=== PATIENT | female | born 1995 | race African-American/Black ===

== ENCOUNTER 2017-04-12 10:52 | Inpatient (IN) | payer OTHER ==
[~2017-04-12] VITALS: Ht 160 cm; Wt 46.2 kg
[2017-04-12] MEDS ORDERED: LAMI25TA PO (11:07)
[2017-04-12] MEDS ORDERED: DEPO150I IM (11:07)
[2017-04-12] MEDS ORDERED: TRAZ50TA11 PO (11:07)
[2017-04-12] MEDS ORDERED: NS 1,000 ML IV ONE (11:15)
[2017-04-12 11:28] LABS: BASO % 0.9 % (0.0-1.0); EOS # 0.3 K/mm3 (0.0-0.50); EOS % 5.4 % (0.0-3.0); LARGE UNSTAINED CELL # 0.2 K/mm3 (0.0-0.4); LARGE UNSTAINED CELL % 2.8 % (0.0-4.0); LYMPH % 29.5 % (24.0-44.0); MEAN CORPUSCULAR HGB CONC 33.4 g/dl (32.0-36.5); MEAN CORPUSCULAR VOLUME 86.9 fl (80.0-96.0); MONO # 0.3 K/mm3 (0.0-0.8); MONO % 4.4 % (0.0-5.0); NEUTROPHILS # 3.6 K/mm3 (1.8-7.7); PLATELET COUNT, AUTOMATED 213 k/mm3 (150-450); RED CELL DISTRIBUTION WIDTH 13.9 % (11.5-14.5); WHITE BLOOD COUNT 6.3 K/mm3 (4.0-10.0)
[2017-04-12 11:53] LABS: ALBUMIN 3.7 GM/DL (3.2-5.2); ALKALINE PHOSPHATASE 40 U/L (45-117); ALT/SGPT 20 U/L (12-78); ANION GAP 6 MEQ/L (8-16); AST/SGOT 5 U/L (15-37); BILIRUBIN,DIRECT 0.1 MG/DL (0.0-0.2); BILIRUBIN,TOTAL 0.4 MG/DL (0.2-1.0); BLOOD UREA NITROGEN 11 MG/DL (7-18); CALCIUM LEVEL 9.1 MG/DL (8.5-10.1); CARBON DIOXIDE LEVEL 26 MEQ/L (21-32); CHLORIDE LEVEL 108 MEQ/L (98-107); GLUCOSE, FASTING 83 MG/DL (70-105); POTASSIUM SERUM 3.9 MEQ/L (3.5-5.1); SODIUM LEVEL 140 MEQ/L (136-145); TOTAL PROTEIN 7.4 GM/DL (6.4-8.2)
[2017-04-12 12:36] LABS: METHADONE URINE NEGATIVE (NEGATIVE)
[2017-04-12 13:12] LABS: CONTROL LINE HCG INT CTR LINE PRESENT
[2017-04-12] MEDS ORDERED: traZODone 50 MG TAB PO PRN (19:15)
[2017-04-12] MEDS ORDERED: LORazepam 1 MG TAB PO PRN (19:15)
[2017-04-12] MEDS ORDERED: ACETAMINOPHEN TAB 650MG DOSE (2X325MG) PO PRN (19:15)
[2017-04-12] MEDS ORDERED: HALOPERIDOL 5 MG TAB PO PRN (19:15)
[2017-04-12] MEDS ORDERED: MAALOX 30 ML SUSP *UDC PO PRN (19:15)
[2017-04-12] MEDS ORDERED: MOM 30ML SUSPENSION UDC PO PRN (19:15)
[2017-04-12 20:06] VITALS: BP 132/81
[2017-04-13 06:50] VITALS: BP 118/59
--- NOTE | 2017-04-13 08:36 | HPEPDOC ---
Medical History and Physical Date of Admission Apr 12, 2017 at 19:02 History and Physical PCP: Qing ferrell ATTENDING: Dr. Mayo Finch HPI: 22yoF admitted to [facility] for major depression, being medically examined today. Patient had called 911 after ingesting an unknown amount of Lamictal 25 mg and trazodone 50 mg. Patient states she takes Lamictal for her mood. Poison control was consulted, the patient was medically stabilized in the emergency department. No acute medical complaints today. Denies any fevers, chills, weakness, fatigue, ARRIOLA, CP, SOB, cough, palpitations, abdominal pain, N/V/D or changes in bowel or bladder habits. PMHx: Anxiety depression PTSD insomnia Self-mutilation. Depo Provera. 04/13. PSHX: denies SOCHX: Resides in: [place] Marital Status: Kids: none Employment: unemployed Tobacco use: denies ETOH: 1-2 per month Illicit Drugs: Marijuana 4 times per month IV Drug Use: Denies Tattoos done unprofessionally: Denies FAMHX: Mother: Alive, anxiety, depression, PTSD Father: Estranged Siblings: Alive, well Children: None Unexpected deaths due to medical reasons: None. ROS: As noted in HPI, otherwise 11pt ROS of systems reviewed and remarkable only for LMP approximately 6 months ago, currently on Depo-Provera. PE: GEN: 22 yo F, appears stated age. Well-nourished, well developed. No acute distress. Alert and oriented x 3. Pleasant, interactive. HEENT: Normocephalic, atraumatic. Pupils are equal, round, and reactive to light. Extraocular movements are intact. No nystagmus appreciated. Sclera are nonicteric. Conjunctiva without injection. Nose midline. Nasal turbinates without bogginess. EACs both patent BL. TMs both visualized and alejandro with good cone of light, no bulging or erythema. No facial asymmetry. Moist mucous membranes. Dentition fair. Pharynx pink and moist, no cobblestoning. Neck supple , trachea midline. No lymphadenopathy or thyromegaly appreciated. CHEST: Regular rate and rhythm, +S1, +S2 LUNGS: Clear to auscultation bilaterally. No wheezes, rales, or rhonchi. Breathing appears symmetric and easy. Patient is speaking in full sentences. No accessory muscle use. ABD: Round, soft, non-tender, non-distended. +Bowel sounds throughout. No rebound or guarding. No costovertebral angle tenderness. EXT: Pulses 2+ bilaterally dorsalis pedis and radial. No lower extremity edema appreciated. SKIN: Narcissa, dry, warm. Capillary refill <2sec. No rashes. NEURO: Alert and oriented x 3. Cranial nerves III-XII are intact. No focal deficits appreciated. EKG: Pending. A&P: 22yoF admitted to [facility] for major depression 1. Psych. Plan per Psychiatry. Obtain baseline EKG to assure the safety of psychiatric medications as they can prolong the QT interval. 2. Abnormal TSH. Recheck TFTs in a.m. 3. Follow up with PCP on discharge. 4. Substance use. Per psychiatry. 5. Staff member Rafia ARROYO present throughout exam. Vital Signs Vital Signs Date Time Temp Pulse Resp B/P (MAP) Pulse Ox O2 Delivery O2 Flow Rate FiO2 04/13/17 06:50 98.4 98 16 118/59 (78) 04/12/17 20:06 98 Room Air Laboratory Data Labs 24H Laboratory Tests 2 04/12/17 11:09: White Blood Count 6.3, Red Blood Count 4.54, Hemoglobin 13.2, Hematocrit 39.5, Mean Corpuscular Volume 86.9, Mean Corpuscular Hemoglobin 29.0, Mean Corpuscular Hemoglobin Concent 33.4, Red Cell Distribution Width 13.9, Platelet Count 213, Neutrophils (%) (Auto) 57.0, Lymphocytes (%) (Auto) 29.5, Monocytes ( %) (Auto) 4.4, Eosinophils (%) (Auto) 5.4H, Basophils (%) (Auto) 0.9, Neutrophils # (Auto) 3.6, Lymphocytes # (Auto) 2.0, Monocytes # (Auto) 0.3, Eosinophils # (Auto) 0.3, Basophils # (Auto) 0.0, Large Unclassified Cells % 2.8 , Large Unclassified Cells # 0.2, Anion Gap 6L, Calcium Level 9.1, Aspartate Amino Transf (AST/SGOT) 5L, Alanine Aminotransferase (ALT/SGPT) 20, Alkaline Phosphatase 40L, Total Bilirubin 0.4, Direct Bilirubin 0.1, Total Creatine Kinase 113, Total Protein 7.4, Albumin 3.7, Albumin/Globulin Ratio 1.00, Thyroid Stimulating Hormone (TSH) 0.366L, Human Chorionic Gonadotropin, Qual NEGATIVE, Salicylates Level < 1.7L, Acetaminophen Level < 2.0L, Ethyl Alcohol Level < 0.003 04/12/17 11:54: Urine Amphetamines Screen NEGATIVE, Urine Benzodiazepines Screen NEGATIVE, Urine Opiates Screen NEGATIVE, Urine Methadone Screen NEGATIVE, Urine Barbiturates Screen NEGATIVE, Urine Phencyclidine Screen NEGATIVE, Urine Cocaine Metabolite Screen NEGATIVE, Urine Cannabinoids Screen POSITIVEH CBC/BMP Laboratory Tests 04/12/17 11:09 Red Blood Count 4.54, Mean Corpuscular Volume 86.9, Mean Corpuscular Hemoglobin 29.0, Mean Corpuscular Hemoglobin Concent 33.4, Red Cell Distribution Width 13.9 , Neutrophils (%) (Auto) 57.0, Lymphocytes (%) (Auto) 29.5, Monocytes (%) (Auto ) 4.4, Eosinophils (%) (Auto) 5.4 H, Basophils (%) (Auto) 0.9, Neutrophils # ( Auto) 3.6, Lymphocytes # (Auto) 2.0, Monocytes # (Auto) 0.3, Eosinophils # (Auto ) 0.3, Basophils # (Auto) 0.0 Home Medications Scheduled Lamotrigine (Lamictal) 25 Mg Tab, 50 MG PO QAM Medroxyprogesterone Acetate (Depo-Provera Contraceptiv) 150 Mg/Ml Inj, 150 MG IM Q3M PT LAST HAD END OF FEBRUARY OR BEGINNING OF MARCH Trazodone HCl (Trazodone HCl) 50 Mg Tab, 50 MG PO QHS Allergies Coded Allergies: No Known Allergies (Unverified , 04/12/17) Roya Mckeon Apr 13, 2017 08:36
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
[2017-04-13] MEDS ORDERED: hydrOXYzine 25 MG TAB PO PRN (11:30)
[2017-04-13] MEDS: DESVENLAFAXINE ER 50 MG TABLET (PRISTIQ) PO SCH (12:22)
[2017-04-13 18:00] VITALS: BP 116/76
--- NOTE | 2017-04-13 20:12 | ECGEPIP ---
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
[2017-04-14 06:26] VITALS: BP 106/58
[2017-04-14 07:41] LABS: THYROXINE (T4) 12.3 UG/DL (6.0-11.6)
--- NOTE | 2017-04-14 08:18 | ECGEPIP ---
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
[2017-04-14] MEDS: DESVENLAFAXINE ER 50 MG TABLET (PRISTIQ) PO SCH (09:10)
[2017-04-14] MEDS ORDERED: traZODone 50 MG TAB PO PRN (16:00)
--- NOTE | 2017-04-14 16:10 | MHIPNPDOC ---
[facility] Progress Note Progress Note DATE OF SERVICE: 04/14/17 HISTORY: day 3 of admission for overdose with intent to commit suicide. VITAL SIGNS: See below. 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 MENTAL STATUS EXAMINATION: Patient is a 22-year old female, who is petite, well groomed, wearing street clothing, good eye contact. Speech: Is spontaneous Language skills are good. Thought processes including: goal directed. Thought content: appropriate. Abstract reasoning, and computation: good. Description of associations: good. Description of abnormal or psychotic thoughts: pt denies psychotic symptoms, none observed, no obsessions or delusions voiced, pt denies current suicidal ideation, denies plan or intent. Judgment: fair. Insight: good. Orientation: good in all spheres Recent and remote memory: grossly intact Attention span and concentration: good. Fund of knowledge: full Mood: depressed at times but mostly euthymic Affect: constricted at times, other times with range. DIAGNOSES: Adjustment disorder with depressed mood. self-mutilation r/o GERALD Cannabis abuse Codependent personality ASSESSMENT: met with pt today. She reports poor sleep with current dose of trazodone, will increase to 100 mg and monitor. Pt is attending therapeutic programming. She is adjusting well to her new environment. She interacts appropriately with peers and staff. Pt c/o nausea. Pt not eating well. Finds food unappetising. Enc to eat small meals frequently throughout the day. Enc to order 2 entrees so she has a choice of something else if her 1st choice does not appeal to her. Enc her to keep up good H2O intake and avoid citrus. Try to eat something at every meals. She did not have any lunch today and very little at breakfast. If nausea persists inform nursing staff and they can contact medical personnel. Pt is prepared for family meeting on Monday. We will discuss options for Olga while her is away on her job. We will problem solve her situation and help her formulate a plan so she can cope with her partner's absence and not be depressed about it. Pt says too that her father in [place] will come over and see her and that could make a big difference to her when her is gone. It is good she is taking the initiative to resolve her concerns. MANAGEMENT PLAN: no change in observation status, monitor po intake and encourage regular po intake. Enc group activities. She handles ADLs on her own very well. She was informed she ask her to bring in food items but check with nursing staff first. She is interested in leaving the hospital after the family meeting on Monday and that is a very strong possibility. Her new SNRI will take time to become fully effective and can be monitored as an outpatient for effectiveness. Higher dose of trazodone ordered. She was informed to discuss insomnia if not resolved with nursing staff so they can consult with on- call. will check with medicine about recommendation regarding thyroid levels. TIME SPENT: 15 minutes. Vital Signs Vital Signs Date Time Temp Pulse Resp B/P (MAP) Pulse Ox O2 Delivery O2 Flow Rate FiO2 04/14/17 06:26 99.0 95 18 106/58 (74) 04/12/17 20:06 98 Room Air Laboratory Data 24H Labs Laboratory Tests 2 04/14/17 06:52: Thyroid Stimulating Hormone (TSH) 0.282L, Free Thyroxine Index 4.6, Thyroxine ( T4) 12.3H, Triiodothyronine (T3) Uptake 37 Current Medications Current Medications Acetaminophen (Tylenol Tab) 650 mg Q6HP PRN PO HEADACHE or DISCOMFORT; Start at 19:15; Stop 05/12/17 at 19:14 Al Hydrox/Mg Hydrox/Simethicone (Mylanta) 30 ml Q4HP PRN PO HEARTBURN/ INDIGESTION; Start 04/12/17 at 19:15; Stop 05/12/17 at 19:14 Desvenlafaxine Succinate (Pristiq) 50 mg QAM PO Last administered on 04/14/17t 09:10; Start 04/13/17 at 09:00; Stop 05/13/17 at 08:59 Haloperidol (Haldol) 5 mg Q4HP PRN PO ANXIETY/AGITATION; Start 04/12/17 at 19: 15; Stop 05/12/17 at 19:14 Home Med (Med Rec Complete!) ASDIRECTED XX ; Start 04/12/17 at 17:45; Stop at 17:46; Status DC Hydroxyzine HCl (Atarax) 25 mg Q6HP PRN PO ANXIETY; Start 04/13/17 at 11:30; Stop 05/13/17 at 11:29 Lorazepam (Ativan) 1 mg Q4HP PRN PO ANXIETY/AGITATION; Start 04/12/17 at 19:15 ; Stop 04/19/17 at 19:14 Magnesium Hydroxide (Milk Of Magnesia) 30 ml DAILYPRN PRN PO CONSTIPATION; Start 04/12/17 at 19:15; Stop 05/12/17 at 19:14 Trazodone HCl (Desyrel) 50 mg QHSP PRN PO INSOMNIA Last administered on t 20:52; Start 04/12/17 at 19:15; Stop 04/14/17 at 15:57; Status DC Trazodone HCl (Desyrel) 100 mg QHSP PRN PO INSOMNIA; Start 04/14/17 at 16:00; Stop 05/14/17 at 15:59; Status UNV Allergies Coded Allergies: No Known Allergies (Unverified , 04/12/17) aLlitha Rutledge Apr 14, 2017 16:10
[2017-04-14 18:00] VITALS: BP 119/66
[2017-04-14] MEDS: traZODone 100 MG TAB PO PRN (20:33)
[2017-04-15 06:41] VITALS: BP 114/59
[2017-04-15] MEDS: DESVENLAFAXINE ER 50 MG TABLET (PRISTIQ) PO SCH (09:19)
[2017-04-15 18:00] VITALS: BP 125/67
[2017-04-15] MEDS: traZODone 100 MG TAB PO PRN (21:18)
[2017-04-16 06:54] VITALS: BP 135/59
[2017-04-16] MEDS: DESVENLAFAXINE ER 50 MG TABLET (PRISTIQ) PO SCH (08:29)
[2017-04-16 18:00] VITALS: BP 139/72
[2017-04-16] MEDS: traZODone 100 MG TAB PO PRN (21:13)
--- NOTE | 2017-04-17 06:26 | MHIPN ---
DATE: 04/15/2017 CHIEF COMPLAINT: Feels stressed. SUBJECTIVE: Seen for followup, in the presence of staff. Says feels stressed, but overall less anxious, somewhat less depressed as well. Says had difficulties with sleep, she suspects it may be because she was anxious prior to going to bed. She also had a nightmare, says it may have been related to the past. Grief for her cousin, whom she was very close to. Plans to visit the family next weekend. Appetite is okay, she feels it is back to normal and that she does not eat much as is. MENTAL STATUS EXAMINATION: Neat, cooperative. No agitation. No psychomotor retardation. There is good eye contact. Speech is spontaneous. Affect is restricted but reactive. She denies any active suicidal thoughts or intents. No homicidal ideas or intents currently. No evidence of any psychosis. Cognition is grossly intact. Judgment and insight are fair. ASSESSMENT: Adjustment disorder with depressed mood. Also consider depressive disorder, though she may not meet full criteria for major depressive episode. PLAN: She is to continue with Pexeva at 50 mg daily, hydroxyzine 25 mg every six hours as needed for anxiety, trazodone 100 mg at night as needed for insomnia. She had a hard time with sleep last night, we will continue with the trazodone for now, and should difficulties continue at this dose, may need to replace it with another hypnotic. She will be involved in individual therapy, and we will encourage her to participate in activities in the unit. VITAL SIGNS: Blood pressure 114/59, pulse 84, temperature 99.9.
[2017-04-17 06:32] VITALS: BP 117/58
--- NOTE | 2017-04-17 08:02 | ECGEPIP ---
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
[2017-04-17] MEDS: DESVENLAFAXINE ER 50 MG TABLET (PRISTIQ) PO SCH (08:16)
[2017-04-17] MEDS ORDERED: PRIS50TA PO (08:40)
[2017-04-17] MEDS ORDERED: TRAZ10TA PO (08:40)
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
--- NOTE | 2017-04-17 13:51 | REP ---
THYROID ULTRASOUND: Real-time sonographic evaluation of the thyroid is performed. Both lobes are normal in size and echotexture, right lobe measuring 4.5 x 1.3 x 1.0 cm and the left lobe 4.3 x 1.2 x 1.0 cm. There is no evidence of cystic or solid nodule bilaterally. IMPRESSION: Normal thyroid ultrasound. Signed by Dionte Olivia MD 04/17/2017 04:08 P
--- NOTE | 2017-04-17 21:50 | MHIPN ---
DATE: 04/16/2017 CHIEF COMPLAINT: Says feels okay. SUBJECTIVE: Seen for followup in the presence of staff. She says she feels better and that her moods are improved. She says she was unable to sleep much, feels it is because she is still in the hospital, and anticipates that improving once she is out. MENTAL STATUS EXAM: She is neat. She is cooperative. No agitation. No psychomotor retardation. She is coherent. Affect is reactive. She denies any thoughts of harming herself or anyone else. Currently, there is no evidence of any psychosis. Cognition grossly intact. Judgment good. Insight is good overall. ASSESSMENT: Adjustment disorder with depressed mood, rule out major depressive disorder. PLAN: Continue current care and observation. Encourage participation in activities on the unit. ZOHRA
--- NOTE | 2017-04-18 08:49 | IPN ---
DATE OF SERVICE: 04/16/2017 I was asked by nursing to see her. She has been having episodes where she feels tachycardic, rapid heart rate anywhere from 80s-90s. Electrocardiogram (EKG) was done, which shows sinus rhythm, rate of 93. She had no other complaints. No lightheadedness. No chest pain. I reviewed her laboratory studies. Complete blood count (CBC) was normal. Thyroid-stimulating hormone (TSH) was low at 0.282. Free T4 4.6. T4 was elevated at 12.3. Will get a thyroid ultrasound in the morning. OBJECTIVE: The patient is very thin. Height 63 inches, weight 46.2 kg, body mass index (BMI) 18. The patient is alert and oriented times three. Pupils equal and reactive to light. Extraocular muscles intact. Cornea and sclerae clear. Conjunctivae normal. No facial asymmetry. Pharynx, tongue, gums pink and moist. Tongue is midline. NECK: Is supple. Thyroid feels slightly enlarged. Carotids 2+ without bruit. CHEST: Clear to auscultation without wheeze or retraction. HEART: Is regular. ABDOMEN: Benign. Bowel sounds positive. GENITOURINARY ()/RECTAL: Not done. EXTREMITIES: No cyanosis, clubbing, or edema. SKIN: Is warm and dry. IMPRESSION: 1. Complaints of tachycardia. 2. Decreased weight. 3. Abnormal thyroid functions. PLAN: Will get thyroid ultrasound. The patient will need an endocrinology consult.
== END 2017-04-17 11:50 | disposition home or self-care (01) | DRG 881 ==
LOC: M ED 10:52 → M ED INP 19:02 → M PSY 20:01
PROVIDERS: ADMIT Psychiatry & Neurology Psychiatry; ATTEND Psychiatry & Neurology Psychiatry
DX: F43.21 Adjustment disorder with depressed mood (principal); Z91.5 Personal history of self-harm; Z79.899 Other long term (current) drug therapy; R94.6 Abnormal results of thyroid function studies; F19.90 Other psychoactive substance use, unspecified, uncomplicated; F32.9 Major depressive disorder, single episode, unspecified

== ENCOUNTER 2017-05-13 10:40 | Emergency (ER) | payer OTHER ==
[~2017-05-13] VITALS: Ht 160 cm; Wt 46.4 kg
[~2017-05-13 10:40] MED LIST: DEPO150I IM; LAMI25TA PO; PRIS50TA PO; TRAZ10TA PO; TRAZ50TA11 PO
[2017-05-13] MEDS ORDERED: KETOROLAC 30 MG/ML VIAL (J1885) IV ONE (11:00)
[2017-05-13] MEDS ORDERED: ONDANSETRON 4MG/2ML VIAL (J2405) IV ONE (11:00)
[2017-05-13] MEDS ORDERED: NS 1,000 ML IV ONE (11:00)
[2017-05-13 11:31] LABS: RENAL EPITHELIAL CELLS 3 /HPF
[2017-05-13 11:34] LABS: ADD MANUAL DIFFER YES; MEAN CORPUSCULAR HEMOGLOBIN 30.3 pg (27.0-33.0); MEAN CORPUSCULAR HGB CONC 35.3 g/dl (32.0-36.5); MEAN CORPUSCULAR VOLUME 85.7 fl (80.0-96.0); PLATELET COUNT, AUTOMATED 185 k/mm3 (150-450); RED CELL DISTRIBUTION WIDTH 13.3 % (11.5-14.5); WHITE BLOOD COUNT 12.9 K/mm3 (4.0-10.0)
[2017-05-13 11:52] LABS: BANDS 2 % (< 11); BASOPHILS 1 % (0-4); EOSINOPHILS 2 % (0-5)
[2017-05-13 12:07] LABS: ALBUMIN 3.2 GM/DL (3.2-5.2); ALBUMIN/GLOBULIN RATIO 1.03 (1.00-1.93); ALKALINE PHOSPHATASE 46 U/L (45-117); ALT/SGPT 14 U/L (12-78); ANION GAP 10 MEQ/L (8-16); AST/SGOT 6 U/L (15-37); BILIRUBIN,DIRECT 0.2 MG/DL (0.0-0.2); BILIRUBIN,TOTAL 0.4 MG/DL (0.2-1.0); BLOOD UREA NITROGEN 6 MG/DL (7-18); CALCIUM LEVEL 8.2 MG/DL (8.5-10.1); CARBON DIOXIDE LEVEL 24 MEQ/L (21-32); CHLORIDE LEVEL 109 MEQ/L (98-107); CREATININE FOR GFR 0.67 MG/DL (0.55-1.02); GLUCOSE, FASTING 74 MG/DL (70-105); POTASSIUM SERUM 3.7 MEQ/L (3.5-5.1); SODIUM LEVEL 143 MEQ/L (136-145); TOTAL PROTEIN 6.3 GM/DL (6.4-8.2)
[2017-05-13] MEDS ORDERED: LEVA1TAB PO ×2 (12:38→12:43)
[2017-05-13 12:40] VITALS: BP 116/58
== END 2017-05-13 12:46 | disposition home or self-care (01) ==
LOC: M ED 10:40
DX: N30.90 Cystitis, unspecified without hematuria (principal); F43.10 Post-traumatic stress disorder, unspecified; F99 Mental disorder, not otherwise specified; Z79.899 Other long term (current) drug therapy
CPT/HCPCS: 36415; 80048; 80076; 81001; 81025; 83690; 85025; 96361; 96374; 96375; 99284; J1885; J2405

== ENCOUNTER 2017-07-22 13:08 | Emergency (ER) | payer OTHER ==
[~2017-07-22] VITALS: Ht 160 cm; Wt 43.6 kg
[~2017-07-22 13:08] MED LIST changes: +LEVA1TAB PO
[2017-07-22 13:54] LABS: CONTROL LINE UCG INT CTR LINE PRESENT
--- NOTE | 2017-07-22 18:20 | REPUSA ---
Clinical history: vaginal bleeding. Findings: Real-time transabdominal ultrasound images of the pelvis were obtained. An anteverted uteru s is noted, measuring 5.5 x 3.3 x 4.0 cm. The uterus demonstrates normal echotexture and echogenicity . The endometrial stripe measures 5 mm and is within normal limits. The right ovary measures 2.4 x 2. 1 x 1.8 cm. The left ovary measures 2.6 x 1.4 x 1.4 cm. No adnexal masses are seen. Color Doppler galina w is seen within both ovaries. There is no evidence of free fluid. Impression: Unremarkable ultrasound examination of the pelvis.
[2017-07-22 18:49] VITALS: BP 113/68
== END 2017-07-22 18:50 | disposition home or self-care (01) ==
LOC: M ED 13:08
DX: N93.9 Abnormal uterine and vaginal bleeding, unspecified (principal); F41.9 Anxiety disorder, unspecified; F32.9 Major depressive disorder, single episode, unspecified; Z79.3 Long term (current) use of hormonal contraceptives

== ENCOUNTER 2017-07-28 12:33 | Emergency (ER) | payer OTHER ==
[~2017-07-28] VITALS: Ht 160 cm; Wt 43.6 kg
[2017-07-28] MEDS ORDERED: ESCI10TA2 PO (12:48)
[2017-07-28] MEDS ORDERED: NORCOTAB PO (14:15)
[2017-07-28] MEDS ORDERED: PERCOCET 5MG/325MG TAB PO ONE (14:15)
[2017-07-28] MEDS ORDERED: BACT800T5 PO (14:15)
[2017-07-28 14:41] VITALS: BP 120/71
== END 2017-07-28 14:46 | disposition home or self-care (01) ==
LOC: M ED 12:33
DX: N76.4 Abscess of vulva (principal); F33.9 Major depressive disorder, recurrent, unspecified; F41.9 Anxiety disorder, unspecified; F43.10 Post-traumatic stress disorder, unspecified; Z79.3 Long term (current) use of hormonal contraceptives

== ENCOUNTER 2018-01-01 07:30 | Emergency (ER) | payer OTHER ==
[2018-01-01] MEDS: ONDANSETRON 4MG/2ML VIAL (J2405) IV (08:31)
[2018-01-01 08:32] LABS: BASO % 0.4 % (0.0-1.0); EOS # 0.2 10^3/uL (0.0-0.50); HEMATOCRIT 41.1 % (36.0-47.0); HEMOGLOBIN 13.4 g/dl (12.0-15.5); IMMATURE GRANULOCYTE % 0.4 % (0-3.0); LYMPH # 2.9 10^3/uL (1.5-6.5); MEAN CORPUSCULAR HEMOGLOBIN 28.9 pg (27.0-33.0); MEAN CORPUSCULAR HGB CONC 32.6 g/dl (32.0-36.5); MEAN CORPUSCULAR VOLUME 88.6 fl (80.0-96.0); MONO # 0.7 10^3/uL (0.0-0.8); MONO % 7.4 % (0.0-5.0); NEUTROPHILS # 6.1 10^3/uL (1.8-7.7); NEUTROPHILS % 60.8 % (36.0-66.0); PLATELET COUNT, AUTOMATED 242 10^3/uL (150-450); RED BLOOD COUNT 4.64 10^6/uL (4.00-5.40); RED CELL DISTRIBUTION WIDTH 14.4 % (11.5-14.5)
[2018-01-01] MEDS: NS 1,000 ML IV (08:32)
[2018-01-01 08:33] LABS: CONTROL LINE UCG INT CTR LINE PRESENT; URINE PREG TEST NEGATIVE (NEGATIVE)
[2018-01-01 08:52] LABS: KETONE, URINE AUTO RFX NEGATIVE (NEGATIVE); LEUKOCYTE ESTERASE UR AUTO RFX NEGATIVE (NEGATIVE); MUCUS, URINE RFX SMALL (NEGATIVE); NITRITE, URINE AUTO RFX NEGATIVE (NEGATIVE); RBC, URINE AUTO RFX 2 /HPF (0-3); SQUAM EPITHELIAL CELL UR AURFX 4 /HPF (0-6); WBC, URINE AUTO RFX 3 /HPF (0-3)
[2018-01-01 08:57] LABS: ALBUMIN 4.3 GM/DL (3.2-5.2); ALBUMIN/GLOBULIN RATIO 0.98 (1.00-1.93); ALKALINE PHOSPHATASE 52 U/L (45-117); ALT/SGPT 21 U/L (12-78); AMYLASE 155 U/L (25-115); ANION GAP 5 MEQ/L (8-16); AST/SGOT 11 U/L (7-37); BILIRUBIN,DIRECT < 0.1 MG/DL (0.0-0.2); BILIRUBIN,TOTAL 0.2 MG/DL (0.2-1.0); BLOOD UREA NITROGEN 12 MG/DL (7-18); CALCIUM LEVEL 8.8 MG/DL (8.5-10.1); CARBON DIOXIDE LEVEL 28 MEQ/L (21-32); CHLORIDE LEVEL 109 MEQ/L (98-107); GLUCOSE, FASTING 73 MG/DL (70-100); LIPASE 120 U/L (73-393); POTASSIUM SERUM 3.3 MEQ/L (3.5-5.1); SODIUM LEVEL 142 MEQ/L (136-145); TOTAL PROTEIN 8.7 GM/DL (6.4-8.2)
== END 2018-01-01 10:07 | disposition home or self-care (01) ==
LOC: M ED 07:30
DX: R11.2 Nausea with vomiting, unspecified (principal); F33.9 Major depressive disorder, recurrent, unspecified; F41.9 Anxiety disorder, unspecified; F43.10 Post-traumatic stress disorder, unspecified; F17.200 Nicotine dependence, unspecified, uncomplicated; Z79.3 Long term (current) use of hormonal contraceptives; Z79.899 Other long term (current) drug therapy
CPT/HCPCS: J2405

== ENCOUNTER 2018-03-01 12:38 | Emergency (ER) | payer OTHER ==
[2018-03-01 13:18] LABS: HEMATOCRIT 41.5 % (36.0-47.0); HEMOGLOBIN 13.7 g/dl (12.0-15.5); MEAN CORPUSCULAR HEMOGLOBIN 29.4 pg (27.0-33.0); MEAN CORPUSCULAR VOLUME 89.1 fl (80.0-96.0); PLATELET COUNT, AUTOMATED 215 10^3/uL (150-450); RED BLOOD COUNT 4.66 10^6/uL (4.00-5.40); RED CELL DISTRIBUTION WIDTH 14.3 % (11.5-14.5); WHITE BLOOD COUNT 7.2 10^3/uL (4.0-10.0)
[2018-03-01 13:26] LABS: CONTROL LINE HCG INT CTR LINE PRESENT; HCG, SERUM QUALITATIVE NEGATIVE (NEGATIVE)
[2018-03-01 13:35] LABS: AMPHETAMINES LEVEL URINE NEGATIVE (NEGATIVE); BARBITURATES URINE NEGATIVE (NEGATIVE); BENZODIAZEPINES URINE NEGATIVE (NEGATIVE); CANNABINOIDS URINE POSITIVE (NEGATIVE); COCAINE METABOLITE URINE NEGATIVE (NEGATIVE); METHADONE URINE NEGATIVE (NEGATIVE); OPIATES URINE NEGATIVE (NEGATIVE); PHENCYCLIDINE URINE NEGATIVE (NEGATIVE)
[2018-03-01 13:43] LABS: ALBUMIN 4.3 GM/DL (3.2-5.2); ALBUMIN/GLOBULIN RATIO 1.05 (1.00-1.93); ALKALINE PHOSPHATASE 49 U/L (45-117); ALT/SGPT 35 U/L (12-78); ANION GAP 9 MEQ/L (8-16); AST/SGOT 15 U/L (7-37); BILIRUBIN,DIRECT 0.2 MG/DL (0.0-0.2); BILIRUBIN,TOTAL 0.7 MG/DL (0.2-1.0); BLOOD UREA NITROGEN 9 MG/DL (7-18); CALCIUM LEVEL 9.5 MG/DL (8.5-10.1); CARBON DIOXIDE LEVEL 26 MEQ/L (21-32); CHLORIDE LEVEL 109 MEQ/L (98-107); CREATININE FOR GFR 0.93 MG/DL (0.55-1.30); ETHYL ALCOHOL (ETHANOL) 0.004 % (0.000-0.010); GLOMERULAR FILTRATION RATE > 60.0 (>60); GLUCOSE, FASTING 78 MG/DL (70-100); POTASSIUM SERUM 3.6 MEQ/L (3.5-5.1); SALICYLATE LEVEL 4.4 MG/DL (5.0-30.0); SODIUM LEVEL 144 MEQ/L (136-145); THYROID STIMULATING HORMONE 0.515 uIU/ML (0.358-3.740); TOTAL PROTEIN 8.4 GM/DL (6.4-8.2)
[2018-03-01 13:45] LABS: ACETAMINOPHEN LEVEL < 2.0 UG/ML (10.0-30.0)
[2018-03-01] MEDS: ALPRAZolam 0.25 MG TAB PO (16:15)
== END 2018-03-01 16:20 | disposition home or self-care (01) ==
LOC: M ED 12:38
DX: F43.0 Acute stress reaction (principal); F33.9 Major depressive disorder, recurrent, unspecified; Z79.899 Other long term (current) drug therapy; Z79.3 Long term (current) use of hormonal contraceptives; F17.210 Nicotine dependence, cigarettes, uncomplicated
CPT/HCPCS: G0480

== ENCOUNTER 2018-07-31 11:47 | Emergency (ER) | payer OTHER ==
[2018-07-31 13:20] LABS: BASO % 0.3 % (0.0-1.0); EOS # 0.1 10^3/uL (0.0-0.50); EOS % 1.3 % (0.0-3.0); HEMATOCRIT 42.1 % (36.0-47.0); HEMOGLOBIN 13.7 g/dl (12.0-15.5); IMMATURE GRANULOCYTE % 0.4 % (0-3.0); LYMPH # 2.6 10^3/uL (1.5-6.5); LYMPH % 27.4 % (24.0-44.0); MEAN CORPUSCULAR HEMOGLOBIN 28.7 pg (27.0-33.0); MEAN CORPUSCULAR HGB CONC 32.5 g/dl (32.0-36.5); MEAN CORPUSCULAR VOLUME 88.1 fl (80.0-96.0); MONO # 0.7 10^3/uL (0.0-0.8); MONO % 7.3 % (0.0-5.0); NEUTROPHILS # 5.9 10^3/uL (1.8-7.7); NEUTROPHILS % 63.3 % (36.0-66.0); PLATELET COUNT, AUTOMATED 292 10^3/uL (150-450); RED BLOOD COUNT 4.78 10^6/uL (4.00-5.40); RED CELL DISTRIBUTION WIDTH 13.6 % (11.5-14.5); WHITE BLOOD COUNT 9.3 10^3/uL (4.0-10.0)
[2018-07-31 13:27] LABS: KETONE, URINE AUTO RFX NEGATIVE (NEGATIVE); LEUKOCYTE ESTERASE UR AUTO RFX NEGATIVE (NEGATIVE); MUCUS, URINE RFX SMALL (NEGATIVE); NITRITE, URINE AUTO RFX NEGATIVE (NEGATIVE); RBC, URINE AUTO RFX 0 /HPF (0-3); SPECIFIC GRAVITY UR AUTO RFX 1.017 (1.002-1.035); SQUAM EPITHELIAL CELL UR AURFX 4 /HPF (0-6); WBC, URINE AUTO RFX 1 /HPF (0-3)
[2018-07-31 13:51] LABS: ALBUMIN 3.7 GM/DL (3.2-5.2); ALKALINE PHOSPHATASE 68 U/L (45-117); ALT/SGPT 15 U/L (12-78); ANION GAP 8 MEQ/L (8-16); AST/SGOT 8 U/L (7-37); BILIRUBIN,DIRECT 0.1 MG/DL (0.0-0.2); BILIRUBIN,TOTAL 0.2 MG/DL (0.2-1.0); BLOOD UREA NITROGEN 8 MG/DL (7-18); CALCIUM LEVEL 8.7 MG/DL (8.5-10.1); CARBON DIOXIDE LEVEL 26 MEQ/L (21-32); CHLORIDE LEVEL 108 MEQ/L (98-107); CREATININE FOR GFR 0.77 MG/DL (0.55-1.30); GLOMERULAR FILTRATION RATE > 60.0 (>60); GLUCOSE, FASTING 77 MG/DL (70-100); SODIUM LEVEL 142 MEQ/L (136-145); TOTAL PROTEIN 7.8 GM/DL (6.4-8.2)
[2018-07-31 15:28] LABS: CONTROL LINE UCG INT CTR LINE PRESENT; URINE PREG TEST NEGATIVE (NEGATIVE)
[2018-07-31] MEDS: DICYCLOMINE 10 MG CAP PO (15:28)
[2018-07-31] MEDS ORDERED: ISOVUE-370 76% 100ML VIAL (Q9967) As Ordered (16:47)
== END 2018-07-31 17:45 | disposition home or self-care (01) ==
LOC: M ED 11:47
DX: R10.84 Generalized abdominal pain (principal); R11.0 Nausea; F41.9 Anxiety disorder, unspecified; F32.9 Major depressive disorder, single episode, unspecified; F43.10 Post-traumatic stress disorder, unspecified; Z87.891 Personal history of nicotine dependence; Z79.3 Long term (current) use of hormonal contraceptives; Z79.899 Other long term (current) drug therapy
CPT/HCPCS: Q9967

== ENCOUNTER 2018-11-14 17:38 | Emergency (ER) | payer OTHER ==
[~2018-11-14] VITALS: Ht 160 cm; Wt 54.5 kg
[~2018-11-14 17:38] MED LIST changes: +BACT800T5 PO; +DICY10CA13 PO; +ESCI10TA2 PO; -LEVA1TAB PO; +LEVA250T13 PO; +NORCOTAB PO; +OLAN10TA2; +PARO20TA3; +PROM25TA12 PO; +TRAZ-160 PO; -TRAZ50TA11 PO; +ZOFR4TAB14 PO
[2018-11-14] MEDS ORDERED: PANT40TA3 PO (17:45)
[2018-11-14] MEDS ORDERED: PROM50TA4 PO (17:45)
[2018-11-14] MEDS ORDERED: diazePAM 5 MG TAB PO ONE (18:30)
[2018-11-14] MEDS ORDERED: METOCLOPRAMIDE 10 MG TAB PO ONE (18:30)
[2018-11-14] MEDS ORDERED: REGL10TA6 PO (19:16)
[2018-11-14] MEDS ORDERED: BACT800T5 PO (19:19)
[2018-11-14 19:22] VITALS: BP 133/77
== END 2018-11-14 19:24 | disposition home or self-care (01) ==
LOC: M ED 17:38
DX: N39.0 Urinary tract infection, site not specified (principal); F33.9 Major depressive disorder, recurrent, unspecified; F41.9 Anxiety disorder, unspecified; F43.10 Post-traumatic stress disorder, unspecified; Z79.899 Other long term (current) drug therapy; Z79.3 Long term (current) use of hormonal contraceptives

== ENCOUNTER → 2019-06-20 | Outpatient (CLI) | payer OTHER ==
[~2019-06-20] MED LIST changes: +HYDR-3715 PO; -NORCOTAB PO; +PANT40TA3 PO; +PROM50TA4 PO; +REGL10TA6 PO; -TRAZ-160 PO; +TRAZ-252 PO
--- NOTE | 2019-06-20 11:58 | REP ---
NUCLEAR GASTRIC EMPTYING SCAN: Following the oral administration of 1.1 mCi technetium-99m sulfur colloid in two scrambled eggs and 1 ounce of water, multiple images of the upper abdomen are performed in the anterior and posterior projections. Gastric activity is measured and at the end of 90 minutes, 82% of the ingested activity has emptied from the stomach. T1/2 is calculated to be 53 minutes, which is normal. IMPRESSION: Normal gastric emptying. Electronically Signed by Dionte Olivia MD 06/22/2019 10:22 A
== END ==
LOC: M RAD 08:25
PROVIDERS: ATTEND Internal Medicine Gastroenterology
DX: R11.0 Nausea (principal)
CPT/HCPCS: 78264; A9541

== ENCOUNTER 2019-09-06 11:58 | Emergency (ER) | payer OTHER ==
[~2019-09-06] VITALS: Ht 160 cm; Wt 56.5 kg
[~2019-09-06 11:58] MED LIST changes: -TRAZ10TA PO; +TRAZ1TAB12 PO
[2019-09-06] MEDS ORDERED: SERO200T PO (12:31)
[2019-09-06] MEDS ORDERED: BUSP10TA PO (12:31)
[2019-09-06] MEDS ORDERED: ZOFR4TAB16 PO (12:31)
[2019-09-06] MEDS ORDERED: PROM50TA4 PO (12:31)
[2019-09-06] MEDS ORDERED: HALOPERIDOL 5 MG/ML VIAL (J1630) IV ONE (13:00)
[2019-09-06] MEDS ORDERED: NS 500 ML IV ONE (13:00)
[2019-09-06] MEDS ORDERED: DICYCLOMINE 10 MG CAP PO ONE (13:00)
[2019-09-06 13:14] LABS: BASO % 0.2 % (0.0-1.0); EOS # 0.1 10^3/uL (0.0-0.5); EOS % 0.7 % (0.0-3.0); HEMATOCRIT 44.2 % (36.0-47.0); LYMPH % 24.7 % (24.0-44.0); MEAN CORPUSCULAR HEMOGLOBIN 27.7 pg (27.0-33.0); MEAN CORPUSCULAR HGB CONC 31.7 g/dl (32.0-36.5); MEAN CORPUSCULAR VOLUME 87.4 fl (80.0-96.0); MONO # 0.5 10^3/uL (0.0-0.8); MONO % 5.5 % (0.0-5.0); NEUTROPHILS # 5.6 10^3/uL (1.5-8.5); NEUTROPHILS % 68.7 % (36.0-66.0); PLATELET COUNT, AUTOMATED 263 10^3/uL (150-450); RED BLOOD COUNT 5.06 10^6/uL (4.00-5.40); WHITE BLOOD COUNT 8.2 10^3/uL (4.0-10.0)
[2019-09-06 13:46] LABS: ALBUMIN 4.3 GM/DL (3.2-5.2); ALT/SGPT 19 U/L (12-78); BILIRUBIN,DIRECT 0.1 MG/DL (0.0-0.2); BILIRUBIN,TOTAL 0.4 MG/DL (0.2-1.0); BLOOD UREA NITROGEN 7 MG/DL (7-18); CALCIUM LEVEL 9.5 MG/DL (8.5-10.1); CARBON DIOXIDE LEVEL 24 MEQ/L (21-32); CHLORIDE LEVEL 106 MEQ/L (98-107); CREATININE FOR GFR 0.73 MG/DL (0.55-1.30); GLOMERULAR FILTRATION RATE > 60.0 (>60); GLUCOSE, FASTING 86 MG/DL (70-100); LIPASE 57 U/L (73-393); POTASSIUM SERUM 4.2 MEQ/L (3.5-5.1); SODIUM LEVEL 139 MEQ/L (136-145)
[2019-09-06] MEDS ORDERED: DICY20TA11 PO (15:30)
[2019-09-06 16:06] VITALS: BP 128/69
== END 2019-09-06 16:10 | disposition home or self-care (01) ==
LOC: M ED 11:58
DX: K58.9 Irritable bowel syndrome, unspecified (principal); F43.10 Post-traumatic stress disorder, unspecified; Z79.899 Other long term (current) drug therapy
CPT/HCPCS: 36415; 80048; 80076; 83690; 85025; 96361; 96374; 99284; J1630

== ENCOUNTER 2019-09-28 09:44 | Emergency (ER) | payer OTHER ==
[~2019-09-28] VITALS: Ht 160 cm; Wt 54.3 kg
[~2019-09-28 09:44] MED LIST changes: +BUSP10TA PO; +DICY20TA11 PO; +SERO200T PO; +ZOFR4TAB16 PO
[2019-09-28 10:30] LABS: BASO % 0.5 % (0.0-1.0); EOS # 0.1 10^3/uL (0.0-0.5); EOS % 1.2 % (0.0-3.0); HEMATOCRIT 45.6 % (36.0-47.0); HEMOGLOBIN 14.4 g/dl (12.0-15.5); LYMPH # 1.8 10^3/uL (1.5-5.0); MEAN CORPUSCULAR HEMOGLOBIN 27.8 pg (27.0-33.0); MEAN CORPUSCULAR HGB CONC 31.6 g/dl (32.0-36.5); MONO # 0.4 10^3/uL (0.0-0.8); MONO % 4.2 % (0.0-5.0); NEUTROPHILS # 6.1 10^3/uL (1.5-8.5); NEUTROPHILS % 72.7 % (36.0-66.0); PLATELET COUNT, AUTOMATED 239 10^3/uL (150-450); RED BLOOD COUNT 5.18 10^6/uL (4.00-5.40); WHITE BLOOD COUNT 8.4 10^3/uL (4.0-10.0)
[2019-09-28 11:38] LABS: APPEARANCE, URINE HAZY (CLEAR); BACTERIA, URINE AUTO 1+ (NEGATIVE); BILIRUBIN, URINE AUTO NEGATIVE (NEGATIVE); BLOOD, URINE BLOOD NEGATIVE (NEGATIVE); COLOR, URINE YELLOW (YELLOW); GLUCOSE, URINE (UA) AUTO NEGATIVE (NEGATIVE); KETONE, URINE AUTO NEGATIVE (NEGATIVE); LEUKOCYTE ESTERASE, URINE AUTO 1+ (NEGATIVE); MUCUS, URINE SMALL (NEGATIVE); NITRITE, URINE AUTO NEGATIVE (NEGATIVE); PROTEIN, URINE AUTO NEGATIVE (NEGATIVE); RBC, URINE AUTO 2 /HPF (0-3); SPECIFIC GRAVITY URINE AUTO 1.019 (1.002-1.035); SQUAMOUS EPITHELIAL CELL UR AU 7 /HPF (0-6); UROBILINOGEN, URINE AUTO 0.2 mg/dL (0.0-2.0); WBC, URINE AUTO 10 /HPF (0-3)
--- NOTE | 2019-09-28 11:45 | REP ---
Pelvic ultrasound for pelvic pain: Comparison is 07/22/2017. The the study is performed with transabdominal, endovaginal and Doppler ultrasound. The uterus is anteverted and normal size measuring 6.7 x 2.4-0.8 cm. The endometrium is not thickened measuring 1 mm. There is a trace of fluid in the endometrial canal. Right ovary: The right ovary measures 3.3 x 1.5 x 2.3 cm. There is no dominant mass or cyst. There is vascular flow with the Doppler resistive index of the parenchymal arteries measuring 0.60. Left ovary: Left ovary measures 3.2 x 1.4 x 1.6 cm and is normal size. There is no dominant mass or cyst. There is vascular flow with the Doppler resistive index in the parenchymal arteries measuring 0.65. There is no free fluid in the cul-de-sac. Impression: Essentially negative pelvic ultrasound. There are no ovarian dominant masses or cysts. There is vascular flow in both ovaries. Electronically Signed by Dionte Romero MD 09/28/2019 11:37 A
[2019-09-28] MEDS ORDERED: MACR100C43 PO (12:03)
[2019-09-28 12:05] VITALS: BP 128/66
== END 2019-09-28 12:12 | disposition home or self-care (01) ==
LOC: M ED 09:44
DX: R10.2 Pelvic and perineal pain (principal); Z98.890 Other specified postprocedural states

== ENCOUNTER 2019-10-06 10:15 | Emergency (ER) | payer OTHER ==
[~2019-10-06] VITALS: Ht 160 cm; Wt 53.6 kg
[~2019-10-06 10:15] MED LIST changes: +MACR100C43 PO
[2019-10-06] MEDS ORDERED: ONDANSETRON 4MG/2ML VIAL (J2405) IV ONE (10:45)
[2019-10-06 10:47] LABS: BASO # 0.1 10^3/uL (0.0-0.2); BASO % 0.6 % (0.0-1.0); EOS % 0.3 % (0.0-3.0); HEMATOCRIT 41.7 % (36.0-47.0); HEMOGLOBIN 13.3 g/dl (12.0-15.5); LYMPH % 20.8 % (24.0-44.0); MEAN CORPUSCULAR HEMOGLOBIN 27.9 pg (27.0-33.0); MEAN CORPUSCULAR HGB CONC 31.9 g/dl (32.0-36.5); MEAN CORPUSCULAR VOLUME 87.4 fl (80.0-96.0); MONO # 0.5 10^3/uL (0.0-0.8); MONO % 4.9 % (0.0-5.0); NEUTROPHILS # 7.2 10^3/uL (1.5-8.5); NEUTROPHILS % 73.1 % (36.0-66.0); PLATELET COUNT, AUTOMATED 254 10^3/uL (150-450); RED BLOOD COUNT 4.77 10^6/uL (4.00-5.40); WHITE BLOOD COUNT 9.8 10^3/uL (4.0-10.0)
[2019-10-06 11:09] LABS: ALBUMIN 3.9 GM/DL (3.2-5.2); BILIRUBIN,DIRECT 0.1 MG/DL (0.0-0.2); BILIRUBIN,TOTAL 0.3 MG/DL (0.2-1.0); TOTAL PROTEIN 7.5 GM/DL (6.4-8.2)
[2019-10-06] MEDS ORDERED: KETOROLAC 30 MG/ML VIAL (J1885) IV ONE (11:15)
[2019-10-06] MEDS ORDERED: NS 1,000 ML IV ONE (13:30)
[2019-10-06] MEDS ORDERED: METOCLOPRAMIDE INJ 10MG/2ML VIAL (J2765) IV ONE (13:30)
[2019-10-06 14:39] VITALS: BP 132/75
[2019-10-06 14:42] LABS: AMPHETAMINES LEVEL URINE NEGATIVE (NEGATIVE); BARBITURATES URINE NEGATIVE (NEGATIVE); BENZODIAZEPINES URINE NEGATIVE (NEGATIVE); CANNABINOIDS URINE POSITIVE (NEGATIVE); COCAINE METABOLITE URINE NEGATIVE (NEGATIVE); METHADONE URINE NEGATIVE (NEGATIVE); OPIATES URINE NEGATIVE (NEGATIVE); PHENCYCLIDINE URINE NEGATIVE (NEGATIVE)
[2019-10-06] MEDS ORDERED: ONDA4TAB6 PO (15:22)
== END 2019-10-06 15:38 | disposition home or self-care (01) ==
LOC: EDBD 10:15 → M ED 10:15
DX: F12.188 Cannabis abuse with other cannabis-induced disorder (principal); R11.2 Nausea with vomiting, unspecified; R10.9 Unspecified abdominal pain; F41.9 Anxiety disorder, unspecified; F32.9 Major depressive disorder, single episode, unspecified; F43.10 Post-traumatic stress disorder, unspecified; Z79.3 Long term (current) use of hormonal contraceptives
CPT/HCPCS: 80047; 80076; 80307; 81001; 83690; 84702; 85025; 96374; 96375; 99284; J1885; J2405; J2765

== ENCOUNTER 2020-06-09 07:36 | Day surgery (SDC) | payer OTHER ==
[~2020-06-09] VITALS: Ht 160 cm; Wt 44.9 kg
[~2020-06-09 07:36] MED LIST changes: +LR 1,000 ML IV ONE; +ONDA4TAB6 PO; +PANT40TA29 PO; -PANT40TA3 PO
[2020-06-09] MEDS ORDERED: fentaNYL 100 MCG/2 ML INJECTION (J3010) As Ordered ONE ×2 (07:58→10:30)
[2020-06-09] MEDS ORDERED: MIDAZOLAM INJ 2MG/2ML VIAL (J2250 PER 1MG) As Ordered ONE (07:58)
[2020-06-09] MEDS ORDERED: SUGAMMADEX SODIUM 500 MG/5 ML VIAL (BRIDION) As Ordered ONE (07:59)
[2020-06-09] MEDS ORDERED: LIDOCAINE 2% 100MG/5ML SDV (FOR ANES.) As Ordered ONE (07:59)
[2020-06-09] MEDS ORDERED: dexameTHASONE 4 MG/ML 1ML VIAL (J1100 PER 1MG) As Ordered ONE (07:59)
[2020-06-09] MEDS ORDERED: propofoL 200 MG/20 ML VIAL As Ordered ONE (07:59)
[2020-06-09] MEDS ORDERED: ONDANSETRON 4MG/2ML VIAL As Ordered ONE (07:59)
[2020-06-09] MEDS ORDERED: KETOROLAC 60MG 2ML VIAL As Ordered ONE (07:59)
[2020-06-09] MEDS ORDERED: ROCURONIUM BROMIDE 50 MG/5 ML VIAL As Ordered ONE ×2 (07:59→09:50)
[2020-06-09 08:09] LABS: HEMATOCRIT 40.2 % (36.0-47.0); HEMOGLOBIN 12.7 g/dl (12.0-15.5); MEAN CORPUSCULAR HEMOGLOBIN 28.8 pg (27.0-33.0); MEAN CORPUSCULAR HGB CONC 31.6 g/dl (32.0-36.5); MEAN CORPUSCULAR VOLUME 91.2 fl (80.0-96.0); PLATELET COUNT, AUTOMATED 214 10^3/uL (150-450); RED BLOOD COUNT 4.41 10^6/uL (4.00-5.40); WHITE BLOOD COUNT 7.8 10^3/uL (4.0-10.0)
[2020-06-09 08:33] LABS: BLOOD UREA NITROGEN 6 MG/DL (7-18); CALCIUM LEVEL 8.6 MG/DL (8.5-10.1); CARBON DIOXIDE LEVEL 29 MEQ/L (21-32); CHLORIDE LEVEL 110 MEQ/L (98-107); CREATININE FOR GFR 0.81 MG/DL (0.55-1.30); GLOMERULAR FILTRATION RATE > 60.0 (>60); GLUCOSE, FASTING 77 MG/DL (70-100); HCG, SERUM QUANTITATIVE < 1.0 MIU/ML; POTASSIUM SERUM 3.8 MEQ/L (3.5-5.1); SODIUM LEVEL 143 MEQ/L (136-145)
[2020-06-09] MEDS ORDERED: BUPIVACAINE HCL 0.5% 10ML VIAL As Ordered ONE (09:03)
[2020-06-09] MEDS: ACETAMINOPHEN 650 MG SUPP As Ordered ONE ×2 (09:28→09:46)
[2020-06-09] MEDS ORDERED: ACETAMINOPHEN 1000MG 100ML IV BTL (OFIRMEV) (J0131 PER 10MG) As Ordered ONE (09:29)
[2020-06-09] MEDS ORDERED: ACETAMINOPHEN 650 MG SUPP As Ordered ONE (09:36)
[2020-06-09] MEDS ORDERED: PHENYLephrine HCL 500 MCG/5 ML (100MCG/ML) SYRINGE (J2370) As Ordered ONE (09:40)
[2020-06-09] MEDS ORDERED: ePHEDrine SULFATE 25 MG/5 ML(5MG/ML) SYRINGE As Ordered ONE (09:40)
[2020-06-09] MEDS: fentaNYL 100 MCG/2 ML INJECTION (J3010) IV PRN ×4 (10:30→10:49)
[2020-06-09] MEDS ORDERED: HYDROMORPHONE HCL 0.5 MG/ 0.5 ML SYRINGE (J1170 PER 1) IV PRN (10:45)
[2020-06-09] MEDS ORDERED: ONDANSETRON 4MG/2ML VIAL IV PRN (10:45)
[2020-06-09] MEDS ORDERED: LR 1,000 ML IV SCH (10:45)
[2020-06-09] MEDS ORDERED: oxyCODONE 5MG TAB PO PRN (10:45)
[2020-06-09 11:25] VITALS: BP 109/63
== END 2020-06-09 12:10 | disposition home or self-care (01) ==
LOC: M SDC 07:36
PROVIDERS: ATTEND Obstetrics & Gynecology
DX: R10.2 Pelvic and perineal pain (principal); K59.00 Constipation, unspecified; F43.10 Post-traumatic stress disorder, unspecified; F41.9 Anxiety disorder, unspecified; F32.9 Major depressive disorder, single episode, unspecified; F12.10 Cannabis abuse, uncomplicated
CPT/HCPCS: 36415; 49320; 80048; 84702; 85027; J0131; J1100; J1170; J1885; J2250; J2370; J2405; J3010